=== PATIENT | male | born 1960 ===

== ENCOUNTER 2020-08-21 11:16 | Outpatient (CLI) | payer BC, SELFPAY | END 2020-08-21 11:17 | disposition home or self-care (01) | LOC: ANHCOVIDVC 11:16 | PROVIDERS: PCP Family Medicine | DX: Z23 Encounter for immunization (principal) | CPT/HCPCS: 0001A; 91300 ==

== ENCOUNTER 2020-09-11 11:16 | Outpatient (CLI) | payer BC, SELFPAY | END 2020-09-11 11:17 | disposition home or self-care (01) | LOC: ANHCOVIDVC 11:16 | PROVIDERS: PCP Family Medicine | DX: Z23 Encounter for immunization (principal) | CPT/HCPCS: 0002A; 91300 ==

== ENCOUNTER 2023-05-14 15:48 | Emergency (ER) | payer SELFPAY ==
--- NOTE | ~2023-05-14 | CT_ITS ---
CT Facial Bones and Cervical Spine Clinical Indication: Injury Technique: Contiguous axial scans were obtained through the facial bones and cervical spine followed by coronal and sagittal reconstructions. Dose reduction technique was used on this scan by utilizing automated exposure control and iterative reconstruction technique. The dose-length product (DLP) was 334.16 mGy-cm. Findings: CT facial bones: No fractures are identified. The visualized paranasal sinuses are clear. Intraorbita l soft tissues appear normal. CT cervical spine: No acute fracture seen. There is minimal grade 1 anterolisthesis of C4 over C5. Th ere is mild degenerative disc change at C5-C6 and C6-C7. There is probable mild disc osteophyte compl ex at C3-C4 with mild bilateral neural foraminal narrowing. There is mild disc osteophyte complex at C5-C6, probable minimal right neural foraminal narrowing. No prevertebral soft tissue swelling. Impression: No fracture is seen in the facial bones. No fracture of cervical spine. Minimal grade 1 anterolisthesis of C4 over C5. Mild degenerative spondylosis, as above. Reviewed, dictated and finalized at [facility]. [facility] Impression: No fracture is seen in the facial bones. No fracture of cervical spine. Minimal grade 1 anterolisthesis of C4 over C5. Mild degenerative spondylosis, as above.
--- NOTE | ~2023-05-14 | CT_ITS ---
Non-contrast Head CT History: Head injury Technique: Axial non-contrast imaging of the brain was performed. Dose reduction technique was used on this scan by utilizing automated exposure control and iterative reconstruction technique. The dose -length product (DLP) was 605.33 mGy-cm. Findings: There is no evidence of intracranial hemorrhage, mass lesion, or acute infarct. Brain par enchyma appears normal. The ventricles and subarachnoid spaces are normal in size. The calvarium ap pears normal. The visualized paranasal sinuses and mastoid air cells are clear. Impression: No significant abnormality seen. Reviewed, dictated and finalized at [facility]. [facility] [employer] [facility] Impression: No significant abnormality seen.
--- NOTE | ~2023-05-14 | XR_ITS ---
Left Forearm AP and lateral views of the left forearm were performed. Clinical History: Laceration Findings: No acute fracture or dislocation is seen. Patient is status post prior ORIF of distal radia l fracture, with chronic, healed fracture deformity present. 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 Joint spaces are preserved. Soft tissues are unremarkable. Impression: No acute abnormality identified. Chronic fracture deformities of the distal radius and ulna, with distal radial orthopedic hardware. Reviewed, dictated and finalized at [facility] Impression: No acute abnormality identified. Chronic fracture deformities of the distal radius and ulna, with distal radial orthopedic hardware.
[2023-05-14 15:50] VITALS: BP 150/92; PULSE 94; RESP 20; TEMP 36.3; O2SAT 99
--- NOTE | 2023-05-14 16:51 | ED.FALL ---
HPI - Fall General Chief Complaint: Fall Stated Complaint: facial injury Time Seen by Provider: 05/14/23 16:08 Source: patient Mode of arrival: ambulatory Limitations: no limitations History of Present Illness HPI Narrative: This is a 63 year old male that presents to the ER for a fall today with head injury. Reports he was carrying a side table and dropped it and he slipped and fell down the steps. Reports hitting his head on the side table. He did not lose consciousness. Reports nosebleed, left forearm abrasion and laceration to the left cheek. Reports some mild neck pain. Denies vision changes, vomiting, numbness or weakness. Related Data Home Medications Medication Instructions Recorded Confirmed No Home Medications 09/10/22 10/08/22 Allergies Allergy/AdvReac Type Severity Reaction Status Date / Time No Known Allergies Allergy Mild Verified 05/14/23 15:59 Review of Systems Review of Systems: CONSTITUTIONAL: Denies fever EYES: Denies visual changes GASTROINTESTINAL: Denies vomiting SKIN: Reports laceration MUSCULOSKELETAL: Reports joint pain. Denies back pain, or myalgia. NEUROLOGIC: Denies numbness, or weakness. All systems reviewed & are unremarkable except as noted in HPI and below PMFSH Past Medical History Medical History (Updated 05/14/23 @ 18:36 by Katherin Mg PA-C) History of basal cell carcinoma Social History Social History (Updated 09/10/22 @ 12:55 by Rosaura aZpata MA) Smoking status: Light tobacco smoker Alcohol intake: current Lack of Transportation: No Lack of Food: Sometimes True Current Housing: I Have Housing Concerned About Future Housing: No Difficulty Paying Gas/Electric Bills: No Difficulty Paying for Meds: No Currently Unemployed: No Education: High School Diploma/GED Difficulty w/ Childcare or Family Care: No Exam Narrative: GENERAL: Well-appearing, well-nourished, and in no acute distress. HEAD: Normocephalic. 2.5cm linear laceration into subcutaneous tissue to the left cheek EYES: PERRLA and EOMI. ENT: Dried blood in the nares. Mucous membranes moist. Oropharynx without tonsillar hypertrophy exudate or other lesions. Bilateral TMs pearly dumont non-bulging NECK: Supple. No adenopathy or masses. CHEST: Clear to auscultation. No respiratory distress. No wheezes rales or rhonchi HEART: Regular rate and rhythm. No murmur heard. Normal peripheral pulses. BACK: No midline spinal tenderness EXTREMITIES: Normal range of motion. No edema or obvious deformity. Superficial skin tear to the left forearm SKIN: Warm, dry, no rash. NEURO: No focal deficits. Alert and oriented x3. CN II-XII grossly intact. Normal gait PSYCH: Normal mood and affect Course Course Emergency Course: Patient updated on his workup. Educated on wound care Vital Signs Vital signs: Vital Signs Temperature 97.4 F L 05/14/23 15:50 Pulse Rate 94 05/14/23 15:50 Respiratory Rate 20 05/14/23 15:50 Blood Pressure 150/92 H 05/14/23 15:50 Pulse Oximetry 99 05/14/23 15:50 Oxygen Delivery Room Air 05/14/23 15:50 Temperature 97.4 F L 05/14/23 15:50 Pulse Rate 94 05/14/23 15:50 Respiratory Rate 20 05/14/23 15:50 Blood Pressure 150/92 H 05/14/23 15:50 Pulse Oximetry 99 05/14/23 15:50 Oxygen Delivery Room Air 05/14/23 15:50 Procedures Laceration Laceration 1: Date: 05/14/23 Time: 18:38 Site: face Side (If applicable): left Size (cm): 2.5 Description: linear Depth: simple, single layer Local Anesthetic: lidocaine 1% and with epi Amount of anesthesia used (mL): 2 Pre-repair: wound explored ====== Skin Level ====== Skin layer closed with: nylon Size (cm): 5-0 Number of sutures: 5 Technique: simple, interrupted ====== Subcutaneous Layer ====== ====== Muscle Layer ====== ====== Tendon Layer ====== MDM - Fall MDM N
[2023-05-14] MEDS: ACETAMINOPHEN 500 MG TABLET 1000 MG PO (16:55)
[2023-05-14] MEDS: TETANUS,DIPHTHERIA,AC PERTUSSIS ADULT (0.5 ML) BOOSTRIX IM (16:57)
== END 2023-05-14 19:19 | disposition home or self-care (01) ==
PROVIDERS: Emergency Provider Physician Assistant; PCP Family Medicine
DX: S01.412A Laceration without foreign body of left cheek and temporomandibular area, initial encounter (principal); S50.812A Abrasion of left forearm, initial encounter; S09.92XA Unspecified injury of nose, initial encounter; Z23 Encounter for immunization; F17.200 Nicotine dependence, unspecified, uncomplicated; Z85.828 Personal history of other malignant neoplasm of skin; M47.812 Spondylosis without myelopathy or radiculopathy, cervical region; W10.9XXA Fall (on) (from) unspecified stairs and steps, initial encounter
CPT/HCPCS: 12011; 70450; 70486; 72125; 73090; 90471; 90715; 99284; A9270